=== PATIENT | male | born 1985 | race Caucasian/White ===

== ENCOUNTER → 2020-02-01 | Outpatient (CLI) | payer OTHER | LOC: M LABSMTC 09:48 | PROVIDERS: ATTEND Orthopaedic Surgery | DX: Z03.818 Encounter for observation for suspected exposure to other biological agents ruled out (principal); Z11.59 Encounter for screening for other viral diseases ==

== ENCOUNTER → 2020-12-09 | Outpatient (CLI) | payer OTHER ==
[~2020-12-09] MED LIST: METHACHOLINE KIT (J7674) INH ONE
--- NOTE | 2020-12-09 11:44 | PFTRPT ---
Height: 73.00 Inches Weight: 225.00 Lbs BSA: 2.26 Diagnosis: R05 DATE: 12/09/2020 ORDERED BY: ALEX Hurtado QUALITY: Study of excellent technical quality. PROCEDURE: Under protocol, methacholine was administered. Even after a maximal dose of 25 mg or 188.875 CDUs, no provocation dose ever achieved. IMPRESSION: Negative methacholine challenge study. MTDD
== END ==
LOC: M CARPUL 10:47
PROVIDERS: ATTEND Nurse Practitioner Family
DX: R05 Cough (principal)
CPT/HCPCS: 94070; J7674

== ENCOUNTER → 2020-12-25 | Outpatient (CLI) | payer OTHER ==
--- NOTE | 2020-12-26 09:20 | REP ---
INDICATION: DYSPNEA, UNSPECIFIED COMPARISON: None TECHNIQUE: Axial noncontrast images from the thoracic inlet to the upper abdomen with coronal and sagittal reformations. This CT examination was performed using the following dose reduction techniques: Automated exposure control, adjustment of mA and/or kv according to the patient's size, and use of iterative reconstruction technique. FINDINGS: Bilateral lung [place] are well aerated, clear and essentially symmetric. No acute consolidation, pleural effusion or pneumothorax. Tracheobronchial tree is patent. No obvious suspicious nodule or mass lesion identified. No axillary, hilar, or mediastinal adenopathy. Thoracic aorta, pulmonary vasculature, and heart/pericardium appear normal. Surrounding musculoskeletal structures are intact. Limited upper abdomen demonstrates hepatosteatosis and normal bilateral adrenal glands. IMPRESSION: No acute mediastinal or pleuroparenchymal process. <Electronically signed by Kanu Corbett > 12/26/20 0916
== END ==
LOC: M RAD 11:14
PROVIDERS: ATTEND Nurse Practitioner Family
DX: R06.00 Dyspnea, unspecified (principal)